=== PATIENT | female | born 1975 | race Caucasian/White ===

== ENCOUNTER → 2017-05-02 | Outpatient (CLI) | payer BC ==
--- NOTE | 2017-05-05 11:22 | MM ---
Reason for exam: screening (asymptomatic). Last mammogram was performed 11 months ago. History: Family history of breast cancer in maternal aunt at age 40 and breast cancer in maternal grandmother. Physical Findings: A clinical breast exam by your physician is recommended on an annual basis and results should be correlated with mammographic findings. MG 3D Screening Mammo W/Cad Bilateral CC and MLO view(s) were taken. Prior study comparison: May 27, 2016, right breast MG 3d diag mammo w/cad RT. November 24, 2015, right breast MG 3d work up w/cad RT. November 17, 2015, bilateral MG screening mammo w CAD. November 10, 2014, bilateral MG screening mammo w CAD. December 18, 2012, bilateral digital screening mammo w/CAD. The breast tissue is heterogeneously dense. This may lower the sensitivity of mammography. There is no discrete abnormality. ASSESSMENT: Negative, BI-RAD 1 RECOMMENDATION: Routine screening mammogram of both breasts in 1 year.
== END ==
LOC: RADMAMWWP 07:20
PROVIDERS: ATTEND Family Medicine
DX: Z12.31 Encounter for screening mammogram for malignant neoplasm of breast (principal)
CPT/HCPCS: 77063; G0202

== ENCOUNTER → 2018-05-28 | Outpatient (CLI) | payer BC ==
--- NOTE | 2018-06-01 07:04 | MM ---
Reason for exam: screening (asymptomatic). Last mammogram was performed 1 year and 1 month ago. History: Family history of breast cancer in maternal aunt at age 40 and breast cancer in maternal grandmother. Physical Findings: A clinical breast exam by your physician is recommended on an annual basis and results should be correlated with mammographic findings. MG 3D Screening Mammo W/Cad Bilateral CC and MLO view(s) were taken. Prior study comparison: May 02, 2017, bilateral MG 3d screening mammo w/cad. May 27, 2016, right breast MG 3d diag mammo w/cad RT. The breast tissue is heterogeneously dense. This may lower the sensitivity of mammography. No suspicious calcifications are seen. New nodular densities outer central right breast 8-9cm from nipple. This finding is changed when compared with previous exams. ASSESSMENT: Incomplete: need additional imaging evaluation, BI-RAD 0 RECOMMENDATION: Special view mammogram and ultrasound of the right breast. [facility] will attempt to contact patient to return for supplemental views and ultrasound.
== END | disposition home or self-care (01) ==
LOC: RADMAMWWP 07:49
PROVIDERS: ATTEND Family Medicine
DX: Z12.31 Encounter for screening mammogram for malignant neoplasm of breast (principal)
CPT/HCPCS: 77063; 77067

== ENCOUNTER → 2018-06-03 | Outpatient (CLI) | payer BC ==
--- NOTE | 2018-06-04 10:16 | MM ---
Reason for exam: additional evaluation requested from abnormal screening. Last mammogram was performed less than 1 month ago. History: Family history of breast cancer in maternal aunt at age 40 and breast cancer in maternal grandmother. Physical Findings: Nurse Summary: 1 x 1cm nodule in the right breast at 2 o'clock (nurse ts). MG 3D Work Up W/Cad RT Spot compression CC, spot compression MLO, and LM view(s) were taken of the right breast. Prior study comparison: May 28, 2018, bilateral MG 3d screening mammo w/cad. May 02, 2017, bilateral MG 3d screening mammo w/cad. The breast tissue is heterogeneously dense. This may lower the sensitivity of mammography. Persistent nodularity in the right breast. Ultrasound recommended. These results were verbally communicated with the patient and result sheet given to the patient on 06/03/18. ASSESSMENT: Incomplete: need additional imaging evaluation, BI-RAD 0 RECOMMENDATION: Ultrasound of the right breast.
--- NOTE | 2018-06-04 10:18 | USB ---
Reason for exam: additional evaluation requested from abnormal screening. History: Family history of breast cancer in maternal aunt at age 40 and breast cancer in maternal grandmother. US Breast Workup RT Right complete breast ultrasound includes all four quadrants, the retroareolar region and axilla. Finding demonstrates a 8 x 5 x 11mm cystic cluster at 4 o'clock BB, a 1.2 x 0.6 x 1.0cm cystic lesion at 7 o'clock, a 0.6 x 0.3 x 0.5cm lesion at 7 o'clock and a 0.7 x 0.4 x 0.7cm cystic lesion at 9 o'clock. Multiple cysts visualized. These results were verbally communicated with the patient and result sheet given to the patient on 06/03/18. ASSESSMENT: Benign, BI-RAD 2 RECOMMENDATION: Return to routine screening mammogram schedule for both breasts.
== END | disposition home or self-care (01) ==
LOC: RADMAMWWP 14:19
PROVIDERS: ATTEND Family Medicine
DX: R92.8 Other abnormal and inconclusive findings on diagnostic imaging of breast (principal)
CPT/HCPCS: 77061; 77065

== ENCOUNTER → 2019-06-17 | Outpatient (CLI) | payer BC ==
--- NOTE | 2019-06-18 10:37 | MM ---
Reason for exam: screening (asymptomatic). Last mammogram was performed 1 year ago. History: Family history of breast cancer in maternal aunt at age 40 and breast cancer in maternal grandmother. Physical Findings: A clinical breast exam by your physician is recommended on an annual basis and results should be correlated with mammographic findings. MG 3D Screening Mammo W/Cad Bilateral CC and MLO view(s) were taken. Prior study comparison: June 03, 2018, right breast MG 3d work up w/cad RT. May 28, 2018, bilateral MG 3d screening mammo w/cad. The breast tissue is heterogeneously dense. This may lower the sensitivity of mammography. No suspicious calcifications are seen. Increasing nodualrity upper outer right breast. This finding is changed when compared with previous exams. ASSESSMENT: Incomplete: need additional imaging evaluation, BI-RAD 0 RECOMMENDATION: Special view mammogram and ultrasound of the right breast. [facility] will attempt to contact patient to return for supplemental views and ultrasound.
== END | disposition home or self-care (01) ==
LOC: RADMAMWWP 08:23
PROVIDERS: ATTEND Family Medicine
DX: Z12.31 Encounter for screening mammogram for malignant neoplasm of breast (principal); R92.8 Other abnormal and inconclusive findings on diagnostic imaging of breast
CPT/HCPCS: 77063; 77067

== ENCOUNTER → 2019-07-02 | Outpatient (CLI) | payer BC ==
--- NOTE | 2019-07-05 08:29 | MM ---
Reason for exam: additional evaluation requested from abnormal screening. Last mammogram was performed less than 1 month ago. History: Family history of breast cancer in maternal aunt at age 40 and breast cancer in maternal grandmother. Physical Findings: Nurse did not find any significant physical abnormalities on exam. MG 3D Work Up W/Cad RT Spot compression CC, spot compression MLO, and ML view(s) were taken of the right breast. Prior study comparison: June 17, 2019, bilateral MG 3d screening mammo w/cad. June 03, 2018, right breast MG 3d work up w/cad RT. The breast tissue is heterogeneously dense. This may lower the sensitivity of mammography. There is changing nodularity in the right breast, multiple present. These results were verbally communicated with the patient and result sheet given to the patient on 07/02/19. ASSESSMENT: Incomplete: need additional imaging evaluation, BI-RAD 0 RECOMMENDATION: Ultrasound of the right breast. ANGÉLICA
--- NOTE | 2019-07-05 08:33 | USB ---
Reason for exam: additional evaluation requested from abnormal screening. History: Family history of breast cancer in maternal aunt at age 40 and breast cancer in maternal grandmother. US Breast Workup RT Right complete breast ultrasound includes all four quadrants, the retroareolar region and axilla. Finding demonstrates ductal ectasia at 1 o'clock, a 0.7 x 0.7 x 0.3cm oval, cystic, cluster at 4 o'clock, a 0.3 x 0.4 x 0.2cm oval, cystic lesion at 6 o'clock, a 0.8 x 0.7 x 0.4cm oval, cystic lesion at 7 o'clock, a 0.6 x 0.5 x 0.4cm oval, complex, cystic lesion at 8 o'clock, a 0.9 x 0.8 x 0.5cm oval, complex, cystic lesion at 10 o'clock, a 0.8 x 0.8 x 0.5cm cystic lesion at 10 o'clock, a 0.3 x 0.4 x 0.2cm cystic lesion at the posterior nipple and a 1.8 x 1.7 x 0.9cm axilla node. These results were verbally communicated with the patient and result sheet given to the patient on 07/02/19. ASSESSMENT: Benign, BI-RAD 2 RECOMMENDATION: Return to routine screening mammogram schedule for both breasts.
== END ==
LOC: RADMAMWWP 13:30
PROVIDERS: ATTEND Family Medicine
DX: R92.8 Other abnormal and inconclusive findings on diagnostic imaging of breast (principal); Z80.3 Family history of malignant neoplasm of breast
CPT/HCPCS: 77061; 77065